=== PATIENT | male | born 1965 | race Caucasian/White ===

== ENCOUNTER 2017-04-06 18:11 | Emergency (ER) | payer OTHER ==
[2017-04-06 18:18] VITALS: BP 152/100; PULSE 83; TEMP 98.1; BMI 41.8
[2017-04-06] MEDS ORDERED: DIPHTH,PERTUSS(ACELL),TET 0.5 ML DISP.SYRIN IM ONE (18:56)
--- NOTE | 2017-04-06 19:00 | PDOC ---
History of Present Illness - General Chief Complaint: Injury Stated Complaint: LACERATION Time Seen by Provider: 04/06/17 18:34 History Source: Patient Exam Limitations: No Limitations - History of Present Illness Initial Comments: 04/06/17 19:11 Chief complaint: Right foot laceration History of present illness: Patient is a 51-year-old male with a history of hypertension for which she does not take medication any longer here today with a right foot laceration dorsal aspect after dropping a straight edged razor on it at home this evening that he uses for shaving. Patient reports that he is not up to date with tetanus. Patient denies any numbness of his right foot patient is able to move all toes without any difficulty. Occurred: reports: just prior to arrival Severity: reports: mild Pain Location: reports: lower extremity (laceration rt. dorsal foot) Past History - Past Medical History Allergies/Adverse Reactions: Allergies Allergy/AdvReac Type Severity Reaction Status Date / Time No Known Allergies Allergy Verified 04/06/17 18:18 Home Medications: Ambulatory Orders NK [No Known Home Medication] 04/06/17 HTN: Yes (Stopped taking meds) Other medical history: obesity - Surgical History Appendectomy: Yes - Psycho/Social/Smoking Cessation Hx Suicidal Ideation: No Smoking History: Current every day smoker Number of Cigarettes Smoked Daily: 20 Information on smoking cessation initiated: Yes 'Breaking Loose' booklet given: 04/06/17 Hx Alcohol Use: No Drug/Substance Use Hx: No Substance Use Type: None *Physical Exam - Vital Signs Last Vital Signs Temp Pulse Resp BP Pulse Ox 98.1 F 83 18 152/100 97 04/06/17 18:15 04/06/17 18:15 04/06/17 18:15 04/06/17 18:15 04/06/17 18:15 - Physical Exam Vascular Pulses: Dorsalis-Pedis (R): 4+ Extremity: positive: Normal Capillary Refill, Normal Inspection (except for laceratiaon dorsal rt. foot see under integumentary), Normal Range of Motion ( rt. foot and toes) Integumentary: positive: Normal Color, Other (rt. dorsal foot proximal to 2 & 3rd toes linear superficial approx 2.7cm x 0.25 cm ) Neurologic: positive: Normal Response, Respond to painful stimul (rt. foot/toes ), Responsive. negative: Numbness, Sensory Deficit (rt. foot/toes ) Procedures - Consent Consent obtained: From Patient - Laceration/Wound Repair Right Foot Wound Length: 2.6 to 5.0 cm Wound Explored: clean Wound's Depth, Shape: linear Irrigated w/ Saline: Yes Betadine Prep: Yes Anesthesia: 1% Lidocaine Amount of Anesthetic (ccs): 3 Wound Repaired With: Sutures Suture Size/Type: 4:0 Number of Sutures: 3 (interrupted) Layer Closure: No Sterile Dressing Applied: Yes Splint Applied: No Medical Decision Making - Medical Decision Making 04/06/17 19:12 Patient is a 51-year-old male with a history of hypertension for which she does not take medication any longer here today with a right foot laceration dorsal aspect after dropping a straight edged razor on it at home this evening that he uses for shaving. Patient reports that he is not up to date with tetanus. Patient denies any numbness of his right foot patient is able to move all toes without any difficulty. Laceration right dorsal foot Plan: TDAP 0.5 mL IM now 3 interrupted sutures applied to right foot laceration and dry sterile dressing applied *DC/Admit/Observation/Transfer Diagnosis at time of Disposition: Laceration of foot Qualifiers: Encounter type: initial encounter Laterality: right Qualified Code(s): S91.311A - Laceration without foreign body, right foot, initial encounter - Discharge Dispostion Disposition: HOME Condition at time of disposition: Stable - Referrals Referrals: Jose Thakkar MD [Primary Care Provider] - - Patient Instructions Additional Instructions: wash right foot laceration wound with antibacterial soap and water twice daily dry thoroughly and apply a tiny amount of Neosporin ointment Cover with Band-Aid when out of house let air out at night today your tetanus, diptheria, and pertussis was updated Return to emergency room or to primary care provider in 10-14 days for suture removal or sooner if any redness around wound or discharge from wound Patient voiced understanding of discharge instructions and all questions were answered
== END 2017-04-06 19:13 | disposition home or self-care (01) ==
LOC: JERFT 18:11
PROC: 0HQMXZZ Repair Right Foot Skin, External Approach (ICD-10-PCS; principal; 2017-04-06)
DX: S91.311A Laceration without foreign body, right foot, initial encounter (principal); W26.0XXA Contact with knife, initial encounter; Y93.89 Activity, other specified; Y92.9 Unspecified place or not applicable
CPT/HCPCS: 90715; 99281-25

== ENCOUNTER 2017-04-16 14:35 | Emergency (ER) | payer OTHER ==
[2017-04-16 14:39] VITALS: BP 125/91; PULSE 91; TEMP 98.7; BMI 41.8
--- NOTE | 2017-04-16 15:52 | PDOC ---
Suture Removal/Wound Check HPI - History of Present Illness Chief Complaint: Suture/Staple Removal(Here) Stated Complaint: SUTURE REMOVAL Time Seen by Provider: 04/16/17 15:30 History Source: Yes: Patient Exam Limitations: Yes: No Limitations Treated at: [facility] ED - Previous ED Treatment Type of procedure performed on last visit: Yes: Laceration Repair Past History - Travel Traveled outside of the country in the last 30 days: No Close contact w/someone who was outside of country & ill: No - Past Medical History Allergies/Adverse Reactions: Allergies No Known Allergies Allergy (Verified 04/16/17 14:39) Home Medications: Ambulatory Orders NK [No Known Home Medication] 04/06/17 General: Yes: no pertinent history Surgical History: Yes: No Surgical History - Social History Smoking Status: Current every day smoker Number of Ciarettes Per Day: 20 Suture Removal/Wound Check PE - Physical Exam Laceration/Wound Check Symptoms: reports: None Current Severity Level: None Maximum Severity Level: None Pain Localization: None *Review of Systems - Review of Systems Able to Perform ROS?: No Constitutional: Yes: Symptoms Reported HEENTM: No: Symptoms Reported Respiratory: Yes: Symptoms reported : No: Symptoms Reported Musculoskeletal: Yes: Symptoms Reported Integumentary: Yes: Symptoms Reported All Other Systems: Reviewed and Negative Medical Decision Making - Medical Decision Making 04/16/17 15:43 3 sutures removed from dorsum of right foot, wound poorly healed and moderately dizziness. No redness, swelling or cellulitis noted. He strips applied to adhesive wound edges and patient will have secondary intention healing *DC/Admit/Observation/Transfer Diagnosis at time of Disposition: Encounter for removal of sutures - Discharge Dispostion Disposition: HOME Condition at time of disposition: Stable Admit: No
== END 2017-04-16 15:56 | disposition home or self-care (01) ==
LOC: JERFT 14:35
DX: Z48.02 Encounter for removal of sutures (principal)
CPT/HCPCS: 99281-25

== ENCOUNTER 2017-11-21 07:47 | Day surgery (SDC) | payer OTHER ==
[2017-11-20 12:11] VITALS: BMI 43.2
[2017-11-21 09:15] VITALS: TEMP 97.6
[2017-11-21] MEDS ORDERED: PROPOFOL 20 ML ONE ×2 (09:19)
[2017-11-21 10:44] VITALS: BP 140/60; PULSE 58
--- NOTE | 2017-11-24 16:57 | PATH ---
Surgical Pathology Report Patient Name: ALYSSA CONTRERAS [facility]. Rec. #: [id number] /Age/Gender: 1965 (Age: 52) / M Account: [id number] Location: [facility]-ENDOSCOPY Taken: 11/21/2017 Received: 11/21/2017 Reported: 11/24/2017 Physicians: Abdoulaye Corcoran M.D. Specimen(s) Received A: BX ANTRUM B: BX ESOPHAGUS Clinical History Preoperative diagnosis: Chest pains Postoperative diagnosis: Inflammatory nodules antrum, ulcerations in esophagus Final Diagnosis A. STOMACH, ANTRUM, BIOPSY: GASTRIC ANTRAL MUCOSA WITH MILD CHRONIC GASTRITIS AND FOCAL MILD VASCULAR CONGESTION. IMMUNOHISTOCHEMICAL STAIN FOR H. PYLORI IS NEGATIVE. B. ESOPHAGUS, BIOPSY: SQUAMOCOLUMNAR MUCOSA WITH MARKED ACUTE ESOPHAGITIS, ULCERATION, AND FOCAL REACTIVE CHANGES. NO INTESTINAL METAPLASIA OR DYSPLASIA IDENTIFIED. FUNGAL SPECIAL STAIN (PAS) IS NEGATIVE. Electronically Signed Mary Young M.D. Gross Description A. Received in formalin, labeled "biopsy inflammatory nodules antrum" are 2 ocampo, irregular portions of soft tissue averaging 0.3 cm. in greatest dimension. The specimens are submitted in toto in one cassette. B. Received in formalin, labeled "biopsy ulcerations in esophagus" are 6 ocampo, irregular portions of soft tissue ranging from 0.2-0.4 cm. in greatest dimension. The specimens are submitted in toto in one cassette. DL/11/21/2017 saudi11/21/2017
== END 2017-11-21 10:20 | disposition home or self-care (01) ==
LOC: JASU-ENDO 07:47
PROVIDERS: ATTEND Internal Medicine Gastroenterology
PROC: 0DB38ZX Excision of Lower Esophagus, Via Natural or Artificial Opening Endoscopic, Diagnostic (ICD-10-PCS; 2017-11-21)
PROC: 0DB68ZX Excision of Stomach, Via Natural or Artificial Opening Endoscopic, Diagnostic (ICD-10-PCS; 2017-11-21)
PROC: 0DJD8ZZ Inspection of Lower Intestinal Tract, Via Natural or Artificial Opening Endoscopic (ICD-10-PCS; principal; 2017-11-21 08:30)
DX: Z12.11 Encounter for screening for malignant neoplasm of colon (principal); K21.0 Gastro-esophageal reflux disease with esophagitis; K29.60 Other gastritis without bleeding; K22.10 Ulcer of esophagus without bleeding; I10 Essential (primary) hypertension; E78.5 Hyperlipidemia, unspecified
CPT/HCPCS: 43239; G0121